=== PATIENT | male | born 1955 | race Hispanic/Latino ===

== ENCOUNTER 2018-07-31 17:24 | Emergency (ER) | payer OTHER, SELFPAY ==
[2018-07-31 19:42] LABS: #Basophils 0.1 thou/uL (0.0-0.2); #Eosinphils 0.1 thou/uL (0.0-0.7); #Lymphocytes 2.3 thou/uL (1.20-3.40); #Monocytes 0.5 thou/uL (0.11-0.59); #Neutrophils 3.9 thou/uL (1.40-6.50); %Basophils 1.2 % (0.0-1.0); %Eosinophils 1.6 % (0.0-10.0); %Lymphocytes 32.9 % (21.0-51.0); %Monocytes 7.8 % (0.0-10.0); %Neutrophils 56.5 % (42.0-75.0); Hemoglobin 15.1 g/dL (14.0-18.0); Mean Corpuscular Hemoglobin 31.6 pg (27.0-31.0); Mean Corpuscular Volume 92.9 fL (78.0-98.0); Mean Platelet Volume 6.3 fL (7.4-10.4); Platelet Count 301 thou/uL (130-400); RBC Distribution Width 11.9 % (11.5-14.5); Red Blood Cell (RBC) Count 4.77 mill/uL (4.70-6.10); White Blood Cell (WBC) Count 6.9 thou/uL (4.8-10.8)
[2018-07-31 20:04] LABS: ALT (SGPT) 33 U/L (8-55); AST (SGOT) 20 U/L (5-34); Albumin 4.4 g/dL (3.4-4.8); Alkaline Phosphatase 119 U/L (40-150); Anion Gap 12 mmol/L (10-20); BUN (Urea Nitrogen) 18 mg/dL (8.4-25.7); Bilirubin, Total 0.7 mg/dL (0.2-1.2); Calc. Creatinine Clearance 0 mL/min (70-130); Calcium 9.6 mg/dL (7.8-10.44); Carbon Dioxide 24 mmol/L (23-31); Chloride 109 mmol/L (98-107); Estimated GFR-MDRD 61; Globulin 2.9 g/dL (2.4-3.5); Glucose 103 mg/dL (80-115); Protein, Total 7.3 g/dL (5.8-8.1); Sodium 141 mmol/L (136-145)
--- NOTE | 2018-07-31 20:25 | CT ---
CT CERVICAL SPINE NONCONTRAST: History: Neck injury. FINDINGS: Vertebral body heights and alignment are maintained. Osteophytosis throughout the vertebral bodies an d facets. No acute fracture or dislocation. Cervicothoracic junction is intact. IMPRESSION: Degenerative changes cervical spine. No acute osseous abnormalities are demonstrated. POS: [facility]
--- NOTE | 2018-07-31 20:37 | CT ---
CT HEAD NONCONTRAST: History: Headache. Recent injury. FINDINGS: There is no evidence of acute intracranial hemorrhage or infarct. Mild diffuse cortical atrophy and c hronic ischemic small vessel disease. There is no mass effect or shift of midline structures. Visuali zed paranasal sinuses remain well aerated. IMPRESSION: No acute intracranial abnormalities are demonstrated. POS: [facility]
== END 2018-07-31 22:15 | disposition home or self-care (01) ==
LOC: ERS 17:24
DX: S06.0X0A Concussion without loss of consciousness, initial encounter (principal); I10 Essential (primary) hypertension; F41.9 Anxiety disorder, unspecified; E78.5 Hyperlipidemia, unspecified; W20.8XXA Other cause of strike by thrown, projected or falling object, initial encounter
CPT/HCPCS: 36415; 70450; 72125; 80053; 85025; 93005

== ENCOUNTER 2018-08-18 08:20 | Outpatient (CLI) | payer OTHER ==
--- NOTE | 2018-08-18 09:16 | ULT ---
CAROTID ULTRASOUND: HISTORY: Hyperlipidemia. TECHNIQUE: Multiplanar, matos scale, and color Doppler images were obtained in a carotid ultrasound. Spectral an alysis of the Doppler waveforms was performed. FINDINGS: There is a moderate amount of plaque surrounding both carotid bifurcations. The Doppler waveforms ar e normal bilaterally. Peak systolic velocity in the right ICA is 76 cm/s. Peak systolic velocity in the right CCA is 96 cm /s. The right ICA/CCA ratio is 0.8. Peak systolic velocity in the left ICA is 77 cm/s. Peak systolic velocity in the left CCA is 111 cm/ s. The let ICA/CCA ratio is 0.7. Both vertebral arteries demonstrate antegrade flow without focal stenosis. IMPRESSION: No evidence of hemodynamically significant stenosis. POS: [facility]
== END 2018-08-18 08:21 | disposition home or self-care (01) ==
LOC: BICULT 08:20
PROVIDERS: ATTEND Nurse Practitioner Family
DX: E78.5 Hyperlipidemia, unspecified (principal)
CPT/HCPCS: 93880

== ENCOUNTER 2018-10-20 15:25 | Outpatient (CLI) | payer OTHER ==
--- NOTE | 2018-10-20 13:37 | MRI ---
Brain MRI with and without contrast: 10/20/2018 HISTORY: Confusion, right eye blurred vision, difficulty speaking TECHNIQUE: Multiplanar multisequence MR imaging of the brain obtained with and without contrast FINDINGS: The diffusion weighted imaging demonstrates no evidence for acute infarction. There is an area of abnormal signal intensity along the superior margin of the basal ganglia on the r ight which is irregularly marginated and demonstrates increased T2 signal centrally. Peripherally it demonstrates increased FLAIR signal and measures 1.3 cm in greatest dimension. No associated enhan cement. Gradient echo imaging demonstrates no associated hemorrhage. A corresponding area of hypodensity noted on a CT examination of the head performed 07/31/2018. Findings are most consistent w ith an area of prior ischemia/insult. The gradient echo imaging demonstrates no evidence for intracranial hemorrhage. The imaged paranasal sinuses/mastoid air cells appear grossly unremarkable. There is no midline shift or mass effect. No ventricular enlargement. No abnormal enhancement within the brain parenchyma. Impression: Intra-axial signal abnormality on the right superior to the basal ganglia, most consisten t with an area of encephalomalacia. Recommend a follow-up brain MRI as a conservative measure in 6-12 months to document stability. No acute findings.
== END 2018-10-20 15:26 | disposition home or self-care (01) ==
LOC: BICMRI 15:25
PROVIDERS: ATTEND Psychiatry & Neurology Neurology
DX: R41.0 Disorientation, unspecified (principal); R93.89 Abnormal findings on diagnostic imaging of other specified body structures
CPT/HCPCS: 70553; 82565

== ENCOUNTER 2020-04-25 08:09 | Outpatient (CLI) | payer OTHER ==
--- NOTE | 2020-04-25 08:55 | ULT ---
EXAM: US Gallbladder RUQ CLINICAL HISTORY: Hepatic steatosis. Right upper quadrant pain. COMPARISON: None. FINDINGS: Pancreas: Pancreas is obscured by bowel gas Liver:Heterogeneous attenuation liver due to hepatic steatosis or hepatocellular disease. Limited arti luation for hepatic masses or intrahepatic biliary dilatation. Right hepatic lobe: 14.6 cm Gallbladder: No sonographic evidence of cholelithiasis, gallbladder wall thickening or pericholecysti c fluid. Lindquist's sign:Negative Portal Vein: Patent. Appropriate directional flow Bile ducts: 0.7 cm common bile duct diameter Right kidney: No hydronephrosis. Right kidney measures 11.1 x 5.0 x 5.4 cm in length. IMPRESSION: 1. Heterogeneous echotexture liver likely due to hepatic steatosis or hepatocellular disease. 2. No sonographic evidence of cholelithiasis or cholecystitis.
== END 2020-04-25 08:10 | disposition home or self-care (01) ==
LOC: BICULT 08:09
PROVIDERS: ATTEND Physician Assistant Medical
DX: K76.0 Fatty (change of) liver, not elsewhere classified (principal); R10.11 Right upper quadrant pain; K59.00 Constipation, unspecified; R93.2 Abnormal findings on diagnostic imaging of liver and biliary tract
CPT/HCPCS: 76705

== ENCOUNTER 2024-11-30 12:57 | Outpatient (CLI) | payer MEDICARE ==
[2024-11-30 13:34] LABS: Estimated GFR - POC 94.0
[2024-11-30] MEDS ORDERED: Iopamidol 370 76% 100 ML VIAL ONE (14:20)
== END 2024-11-30 12:58 | disposition home or self-care (01) ==
LOC: CT 12:57
PROVIDERS: ATTEND Internal Medicine Gastroenterology
DX: K21.9 Gastro-esophageal reflux disease without esophagitis (principal); R19.7 Diarrhea, unspecified; K76.0 Fatty (change of) liver, not elsewhere classified; K44.9 Diaphragmatic hernia without obstruction or gangrene; K57.30 Diverticulosis of large intestine without perforation or abscess without bleeding
CPT/HCPCS: 36415; 74177; 82565; Q9967